=== PATIENT | female | born 1985 | race Caucasian/White ===

== ENCOUNTER 2025-01-24 18:45 | Emergency (ER) | payer BC, MEDICAID ==
[2025-01-24 18:49] LABS: BASOPHILS ABSOLUTE AUTO 0.05 10^3/uL (0.00-0.50); BASOPHILS PERCENT AUTO 0.6 % (0-1); EOSINOPHILS ABSOLUTE AUTO 0.16 10^3/uL (0.00-1.50); EOSINOPHILS PERCENT AUTO 1.9 % (0-6); IMMATURE GRAN ABSOLUTE AUTO 0.02 10^3/uL (0.00-0.49); IMMATURE GRAN PERCENT AUTO 0.2 % (0.0-4.9); LYMPHOCYTES ABSOLUTE AUTO 1.98 10^3/uL (0.60-5.00); LYMPHOCYTES PERCENT AUTO 23.4 % (24-44); MONOCYTES ABSOLUTE AUTO 0.48 10^3/uL (0.00-1.50); MONOCYTES PERCENT AUTO 5.7 % (0-10); NEUTROPHILS ABSOLUTE AUTO 5.78 x10^3/uL (1.80-8.00); NEUTROPHILS PERCENT AUTO 68.2 % (41-71); PLATELET COUNT,PLT 262 10^3/uL (150-400); RED BLOOD CELL COUNT 4.28 x10^6/uL (4.00-5.50); WHITE BLOOD CELL COUNT,WBC 8.5 10^3/uL (4.0-11.0)
[2025-01-24 19:09] LABS: ALANINE AMINOTRANSFERASE,ALT 27 U/L (12-78); ASPARTATE AMNIOTRANSFERASE,AST 19 U/L (15-37); BILIRUBIN TOTAL 0.6 mg/dL (0.0-1.0); BLOOD UREA NITROGEN,BUN 17 mg/dL (7-18); CARBON DIOXIDE,CO2 29 mmol/L (21-32); CHLORIDE,CL 104 mEq/L (98-106); CREATININE 0.9 mg/dL (0.6-1.0); GLUCOSE RANDOM 95 mg/dL (75-99); POTASSIUM,K 3.8 mEq/L (3.5-5.0); PROTEIN TOTAL,TP 7.3 g/dL (6.4-8.2); SODIUM,NA 141 mEq/L (136-145)
[2025-01-24 19:10] LABS: ESTIMATED GFR 84 mL/min (>=60); ETHANOL BLOOD MEDICAL < 3 mg/dL (0-3)
[2025-01-24 20:35] VITALS: BP 118/71; PULSE 71
== END 2025-01-24 20:05 | disposition home or self-care (01) ==
LOC: CC.ED 18:45
DX: S00.03XA Contusion of scalp, initial encounter (principal); M62.838 Other muscle spasm; W01.198A Fall on same level from slipping, tripping and stumbling with subsequent striking against other object, initial encounter
CPT/HCPCS: 36415; 70450; 71045; 72125; 80053; 80307; 83605; 83735; 84484; 85025; 93005; 99284